=== PATIENT | female | born 1970 | race African-American/Black ===

== ENCOUNTER 2020-06-19 10:03 | Day surgery (SDC) | payer OTHER ==
[~2020-06-19 10:03] MED LIST: FERRIC CARBOXYMALTOSE 750 MG in SODIUM CHLORIDE 250 ML IVPB ONE
[2020-06-19] MEDS ORDERED: CYANOCOBALAMIN (VITAMIN B-12) 1000 MCG/1 ML VIAL IM ONE (10:15)
[2020-06-19] MEDS ORDERED: FOLIC ACID 5 MG/1 ML SQ ONE (10:15)
[2020-06-19] MEDS ORDERED: EPOETIN ALFA-EPBX 40,000 UNIT/ML VIAL SQ ONE (10:15)
[2020-06-19] MEDS: ALBUMIN HUMAN 25% 12.5 GM/50 ML VIAL IVPB SCH ×3 (11:03→12:05)
[2020-06-19 11:33] LABS: BASO % 1.1 % (0-2.0); EOS % 1.6 % (0-4.5); HEMATOCRIT 17.6 % (32.4-45.2); MCHC 24.9 g/dl (32.0-36.0); MEAN PLT VOLUME 9.7 fl (7.5-11.1); MONO % 9.5 % (3.8-10.2); NEUT % 34.8 % (42.8-82.8); PLATELET COUNT 544 K/MM3 (134-434); RBC 3.38 M/mm3 (3.60-5.2); RDW 25.6 % (11.6-15.6); WHITE BLOOD COUNT 2.1 K/mm3 (4.0-10.0)
[2020-06-19 11:38] LABS: HEMOGLOBIN 4.4 GM/dL (10.7-15.3)
[2020-06-19 11:46] LABS: CALCIUM 9.4 mg/dL (8.5-10.1)
[2020-06-19 11:47] LABS: ALBUMIN 3.7 g/dl (3.4-5.0); BLOOD UREA NITROGEN 9.2 mg/dL (7-18)
[2020-06-19 11:50] LABS: CREATININE 0.7 mg/dL (0.55-1.3)
[2020-06-19 11:51] LABS: BILIRUBIN,TOTAL 0.6 mg/dL (0.2-1)
[2020-06-19 11:52] LABS: TOT PROT 7.8 g/dl (6.4-8.2)
[2020-06-19 12:56] VITALS: TEMP 98.7
[2020-06-19 12:56] LABS: ANISOCYTOSIS 3+; MACROCYTOSIS 0; PLATELET ESTIMATE INCREASED; TEAR DROP CELLS 2+
[2020-06-19 12:57] VITALS: BP 111/62; PULSE 87
== END 2020-06-19 13:00 | disposition home or self-care (01) ==
LOC: JONCNONCHE 10:03
PROVIDERS: ATTEND Internal Medicine Hematology & Oncology
PROC: 3E033GC Introduction of Other Therapeutic Substance into Peripheral Vein, Percutaneous Approach (ICD-10-PCS; principal; 2020-06-19)
PROC: 3E013GC Introduction of Other Therapeutic Substance into Subcutaneous Tissue, Percutaneous Approach (ICD-10-PCS; 2020-06-19)
DX: D64.9 Anemia, unspecified (principal)
CPT/HCPCS: 36415; 80053; 84703; 85025; 96365; 96366; 96372; J1439; P9047; Q5106

== ENCOUNTER 2020-06-26 05:59 | Day surgery (SDC) | payer OTHER ==
[2020-06-26] MEDS ORDERED: FERRIC CARBOXYMALTOSE 750 MG in SODIUM CHLORIDE 250 ML IVPB ONE (10:00)
[2020-06-26 13:01] LABS: MONO % 7.4 % (3.8-10.2); WHITE BLOOD COUNT 2.1 K/mm3 (4.0-10.0)
[2020-06-26 13:03] LABS: BASO % 0.4 % (0-2.0); EOS % 2.1 % (0-4.5); HEMATOCRIT 20.6 % (32.4-45.2); LYMPH % 43.2 % (8-40); MCHC 25.8 g/dl (32.0-36.0); MEAN PLT VOLUME 9.2 fl (7.5-11.1); NEUT % 46.9 % (42.8-82.8); PLATELET COUNT 120 K/MM3 (134-434); RBC 3.17 M/mm3 (3.60-5.2); RDW 26.6 % (11.6-15.6)
[2020-06-26 13:05] LABS: MCH 16.8 pg (25.7-33.7)
[2020-06-26 13:11] LABS: HEMOGLOBIN 5.3 GM/dL (10.7-15.3)
[2020-06-26 13:44] LABS: POTASSIUM 3.8 mmol/L (3.5-5.1)
[2020-06-26 13:47] LABS: ALBUMIN 3.6 g/dl (3.4-5.0); BLOOD UREA NITROGEN 10.7 mg/dL (7-18); CALCIUM 8.2 mg/dL (8.5-10.1)
[2020-06-26 13:50] LABS: CREATININE 0.6 mg/dL (0.55-1.3); PHOSPHOROUS 3.8 mg/dL (2.5-4.9)
[2020-06-26 13:51] LABS: BILIRUBIN,TOTAL 0.8 mg/dL (0.2-1)
[2020-06-26 14:20] LABS: ANISOCYTOSIS 3+; MACROCYTOSIS 0; PLATELET ESTIMATE DECREASED
[2020-06-26 15:10] VITALS: TEMP 98.4
[2020-06-26 15:11] VITALS: BP 127/61; PULSE 67
== END 2020-06-26 13:45 | disposition home or self-care (01) ==
LOC: JONCNONCHE 05:59
PROVIDERS: ATTEND Internal Medicine Hematology & Oncology
PROC: 3E033GC Introduction of Other Therapeutic Substance into Peripheral Vein, Percutaneous Approach (ICD-10-PCS; principal; 2020-06-26)
DX: D50.9 Iron deficiency anemia, unspecified (principal)
CPT/HCPCS: 36415; 80053; 83615; 84100; 84439; 84443; 84703; 85025; 86038; 88300-TC; 96365; J1439

== ENCOUNTER 2020-06-29 13:06 | Emergency (ER) | payer OTHER ==
[2020-06-29 13:13] VITALS: BMI 29.2
[2020-06-29] MEDS ORDERED: ACETAMINOPHEN 1000 MG/100 ML VIAL (NON FORMULARY) IVPB ONE (13:43)
[2020-06-29] MEDS ORDERED: SODIUM CHLORIDE 1,000 ML IV STA (13:43)
[2020-06-29] MEDS ORDERED: ONDANSETRON 4 MG/2 ML VIAL IVPUSH ONE (13:44)
[2020-06-29] MEDS ORDERED: ACETAMINOPHEN INJECTION 100 ML IVPB ONE (13:50)
[2020-06-29 14:38] LABS: URINE APPEARANCE CLEAR; URINE BILIRUBIN NEGATIVE (NEGATIVE); URINE COLOR YELLOW; URINE GLUCOSE (UA) NEGATIVE (NEGATIVE); URINE KETONE TRACE (NEGATIVE); URINE LEUK ESTERASE NEGATIVE (NEGATIVE); URINE NITRITE NEGATIVE (NEGATIVE); URINE PROTEIN NEGATIVE (NEGATIVE)
[2020-06-29 14:40] LABS: HCG,QUALITATIVE URINE Negative
[2020-06-29 14:52] LABS: BASO % 1.2 % (0-2.0); EOS % 2.2 % (0-4.5); LYMPH % 31.7 % (8-40); MCHC 25.8 g/dl (32.0-36.0); MEAN CELL VOLUME 70.9 fl (80-96); MEAN PLT VOLUME 10.1 fl (7.5-11.1); MONO % 7.4 % (3.8-10.2); NEUT % 57.5 % (42.8-82.8); PLATELET COUNT 46 K/MM3 (134-434); RBC 3.52 M/mm3 (3.60-5.2); RDW 49.2 % (11.6-15.6); WHITE BLOOD COUNT 4.1 K/mm3 (4.0-10.0)
[2020-06-29 15:02] LABS: HEMOGLOBIN 6.5 GM/dL (10.7-15.3); MCH 18.3 pg (25.7-33.7)
[2020-06-29 15:07] LABS: POTASSIUM 3.8 mmol/L (3.5-5.1)
[2020-06-29 15:10] LABS: ALBUMIN 3.6 g/dl (3.4-5.0); BLOOD UREA NITROGEN 13.4 mg/dL (7-18); CALCIUM 8.6 mg/dL (8.5-10.1)
[2020-06-29 15:13] LABS: CREATININE 0.8 mg/dL (0.55-1.3)
[2020-06-29 15:15] LABS: BILIRUBIN,TOTAL 0.6 mg/dL (0.2-1); TOT PROT 7.1 g/dl (6.4-8.2)
[2020-06-29 16:06] LABS: ANISOCYTOSIS 3+; MACROCYTOSIS 2+; OVALOCYTE 2+; PLATELET ESTIMATE DECREASED
[2020-06-29] MEDS ORDERED: traMADol HCL 50 MG TABLET PO ONE (21:55)
[2020-06-29] MEDS ORDERED: traMADol HCL 50 MG TABLET ONE (22:13)
[2020-06-29 22:15] VITALS: BP 114/71; PULSE 54; TEMP 98.1
== END 2020-06-29 21:35 | disposition home or self-care (01) ==
LOC: JER 13:06
PROC: 3E0333Z Introduction of Anti-inflammatory into Peripheral Vein, Percutaneous Approach (ICD-10-PCS; principal; 2020-06-29)
PROC: 3E033GC Introduction of Other Therapeutic Substance into Peripheral Vein, Percutaneous Approach (ICD-10-PCS; 2020-06-29)
PROC: 3E0337Z Introduction of Electrolytic and Water Balance Substance into Peripheral Vein, Percutaneous Approach (ICD-10-PCS; 2020-06-29)
DX: R10.9 Unspecified abdominal pain (principal); D50.8 Other iron deficiency anemias
CPT/HCPCS: 36415; 71275-TC; 74174-TC; 74176-TC; 80053; 81003; 83690; 84703; 85025; 86900; 87086; 99285-25; J0131; Q9967

== ENCOUNTER 2020-07-03 07:16 | Day surgery (SDC) | payer OTHER ==
[2020-07-03] MEDS ORDERED: IRON SUCROSE INJECTION 300 MG in SODIUM CHLORIDE 250 ML IVPB ONE (10:00)
[2020-07-03 14:23] VITALS: BP 120/75; PULSE 81; TEMP 98.4
== END 2020-07-03 12:45 | disposition home or self-care (01) ==
LOC: JONCCHEMO 07:16
PROVIDERS: ATTEND Internal Medicine Hematology & Oncology
PROC: 3E033GC Introduction of Other Therapeutic Substance into Peripheral Vein, Percutaneous Approach (ICD-10-PCS; principal; 2020-07-03)
DX: D50.9 Iron deficiency anemia, unspecified (principal)
CPT/HCPCS: 96365; J1756

== ENCOUNTER 2020-07-08 07:07 | Day surgery (SDC) | payer OTHER ==
[2020-07-08] MEDS ORDERED: IRON SUCROSE INJECTION 300 MG in SODIUM CHLORIDE 250 ML IVPB ONE (10:00)
[2020-07-08 11:28] LABS: BASO % 1.2 % (0-2.0); EOS % 5.5 % (0-4.5); HEMOGLOBIN 9.9 GM/dL (10.7-15.3); LYMPH % 53.5 % (8-40); MCH 22.9 pg (25.7-33.7); MCHC 29.3 g/dl (32.0-36.0); MEAN CELL VOLUME 78.3 fl (80-96); MEAN PLT VOLUME 9.2 fl (7.5-11.1); MONO % 10.2 % (3.8-10.2); NEUT % 29.6 % (42.8-82.8); RBC 4.34 M/mm3 (3.60-5.2); RDW 46.6 % (11.6-15.6); WHITE BLOOD COUNT 2.4 K/mm3 (4.0-10.0)
[2020-07-08 11:39] LABS: ALBUMIN 3.8 g/dl (3.4-5.0); CALCIUM 8.5 mg/dL (8.5-10.1); MAGNESIUM 1.8 mg/dL (1.8-2.4)
[2020-07-08 11:40] LABS: PLATELET COUNT 175 K/MM3 (134-434)
[2020-07-08 11:41] LABS: BILIRUBIN,DIRECT 0.2 mg/dL (0.0-0.2); URIC ACID 3.3 mg/dL (2.6-7.2)
[2020-07-08 11:42] LABS: CREATININE 0.7 mg/dL (0.55-1.3)
[2020-07-08 11:43] LABS: BILIRUBIN,TOTAL 0.5 mg/dL (0.2-1)
[2020-07-08 11:47] LABS: TOT PROT 7.4 g/dl (6.4-8.2)
[2020-07-08 11:55] LABS: IRON SERUM 66 ug/dL (50-175)
[2020-07-08 11:56] LABS: TOTAL IRON BINDING CAPACITY 374 ug/dL (250-450)
[2020-07-08 12:49] LABS: PLATELET ESTIMATE NORMAL
[2020-07-08 16:56] VITALS: TEMP 98.2
[2020-07-08 16:57] VITALS: BP 114/78; PULSE 86
== END 2020-07-08 12:55 | disposition home or self-care (01) ==
LOC: JONCNONCHE 07:07 → JONCCHEMO 07:07 → JONCNONCHE 12:55
PROVIDERS: ATTEND Internal Medicine Hematology & Oncology
PROC: 3E033GC Introduction of Other Therapeutic Substance into Peripheral Vein, Percutaneous Approach (ICD-10-PCS; principal; 2020-07-08)
DX: D50.9 Iron deficiency anemia, unspecified (principal)
CPT/HCPCS: 36415; 80048; 80076; 82728; 83540; 83550; 83615; 83735; 84550; 85025; 86225; 86235; 96365; J1756

== ENCOUNTER 2020-07-17 05:40 | Day surgery (SDC) | payer OTHER ==
[2020-07-17] MEDS ORDERED: IRON SUCROSE INJECTION 300 MG in SODIUM CHLORIDE 250 ML IVPB ONE (10:00)
[2020-07-17 14:30] VITALS: BP 109/72; PULSE 80; TEMP 97.4
== END 2020-07-17 12:50 | disposition home or self-care (01) ==
LOC: JONCNONCHE 05:40
PROVIDERS: ATTEND Internal Medicine Hematology & Oncology
PROC: 3E013GC Introduction of Other Therapeutic Substance into Subcutaneous Tissue, Percutaneous Approach (ICD-10-PCS; principal; 2020-07-17)
DX: D50.9 Iron deficiency anemia, unspecified (principal)
CPT/HCPCS: 96365; J1756

== ENCOUNTER → 2021-11-22 | Emergency (ER) | payer OTHER ==
[~2021-11-22] MED LIST changes: -FERRIC CARBOXYMALTOSE 750 MG in SODIUM CHLORIDE 250 ML IVPB ONE; +PANTOPRAZOLE SODIUM 40 MG VIAL ONE
[2021-11-22 14:04] VITALS: BP 115/48; PULSE 103; TEMP 98.6; BMI 29.7
== END | disposition left against medical advice (07) ==
LOC: JERFT 14:00 → JER 14:00
DX: R05.9 Cough, unspecified (principal); H92.02 Otalgia, left ear
CPT/HCPCS: 99282-25

== ENCOUNTER 2022-11-17 22:33 | Inpatient (IN) | payer OTHER ==
[2022-11-17 22:57] VITALS: BMI 29.1
[2022-11-18] MEDS ORDERED: KETOROLAC TROMETHAMINE 30 MG/1 ML VIAL IM ONE (00:43)
[2022-11-18] MEDS ORDERED: KETOROLAC TROMETHAMINE 30 MG/1 ML VIAL IVPUSH ONE (01:19)
[2022-11-18] MEDS ORDERED: KETOROLAC TROMETHAMINE 30 MG/1 ML VIAL ONE (01:27)
[2022-11-18 01:46] LABS: BASO % 0.4 % (0-2.0); EOS % 0.2 % (0-4.5); HEMATOCRIT 15.6 % (32.4-45.2); LYMPH % 20.1 % (8-40); MCHC 27.5 g/dl (32.0-36.0); MEAN CELL VOLUME 48.6 fl (80-96); MEAN PLT VOLUME 8.4 fl (7.5-11.1); NEUT % 69.3 % (42.8-82.8); PLATELET COUNT 241 10^3/uL (134-434); RDW 23.8 % (11.6-15.6); WHITE BLOOD COUNT 6.9 K/mm3 (4.0-10.0)
[2022-11-18 02:11] LABS: ALBUMIN 3.2 g/dl (3.4-5.0); BLOOD UREA NITROGEN 8.6 mg/dL (7-18)
[2022-11-18 02:13] LABS: MCH 13.4 pg (25.7-33.7)
[2022-11-18 02:14] LABS: CREATININE 0.7 mg/dL (0.55-1.3); HEMOGLOBIN 4.3 GM/dL (10.7-15.3)
[2022-11-18 02:15] LABS: BILIRUBIN,TOTAL 0.5 mg/dL (0.2-1); TOT PROT 7.4 g/dl (6.4-8.2)
[2022-11-18] MEDS ORDERED: DOCUSATE SODIUM 100 MG CAPSULE (FP) PO PRN (03:59)
[2022-11-18] MEDS ORDERED: ACETAMINOPHEN 1000 MG/100 ML BAG IVPB PRN (04:03)
[2022-11-18 08:39] LABS: BASO % 0.3 % (0-2.0); EOS % 0.2 % (0-4.5); HEMATOCRIT 18.6 % (32.4-45.2); LYMPH % 14.1 % (8-40); MCHC 28.9 g/dl (32.0-36.0); MEAN CELL VOLUME 53.7 fl (80-96); MEAN PLT VOLUME 9.3 fl (7.5-11.1); MONO % 13.8 % (3.8-10.2); NEUT % 71.6 % (42.8-82.8); PLATELET COUNT 271 10^3/uL (134-434); RBC 3.45 M/mm3 (3.60-5.2); RDW 24.7 % (11.6-15.6); WHITE BLOOD COUNT 6.8 K/mm3 (4.0-10.0)
[2022-11-18 08:40] LABS: RETICULOCYTES 1.36 % (0.5-1.5)
[2022-11-18 08:41] LABS: MCH 15.5 pg (25.7-33.7)
[2022-11-18 08:42] LABS: HEMOGLOBIN 5.4 GM/dL (10.7-15.3)
[2022-11-18] MEDS ORDERED: ACETAMINOPHEN 325 MG TABLET (FP) ONE ×2 (08:43→14:00)
[2022-11-18 18:48] LABS: HEMATOCRIT 22.1 % (32.4-45.2); MEAN CELL VOLUME 57.4 fl (80-96); RBC 3.85 M/mm3 (3.60-5.2); RDW 37.1 % (11.6-15.6)
[2022-11-18 18:51] LABS: MCH 16.6 pg (25.7-33.7)
[2022-11-18 18:52] LABS: HEMOGLOBIN 6.4 GM/dL (10.7-15.3)
[2022-11-18 19:12] LABS: MEAN PLT VOLUME 8.7 fl (7.5-11.1); PLATELET COUNT 233 10^3/uL (134-434)
[2022-11-18] MEDS: ACETAMINOPHEN 325 MG TABLET (FP) PO PRN (20:43)
[2022-11-19] MEDS ORDERED: ACETAMINOPHEN 325 MG TABLET (FP) PO PRN (03:59)
[2022-11-19 08:56] LABS: HEMATOCRIT 23.2 % (32.4-45.2); MCHC 30.3 g/dl (32.0-36.0); MEAN CELL VOLUME 59.7 fl (80-96); MEAN PLT VOLUME 8.7 fl (7.5-11.1); RBC 3.89 M/mm3 (3.60-5.2); RDW 37.1 % (11.6-15.6); WHITE BLOOD COUNT 8.8 K/mm3 (4.0-10.0)
[2022-11-19 08:57] LABS: MCH 18.1 pg (25.7-33.7)
[2022-11-19 08:58] LABS: PLATELET COUNT 178 10^3/uL (134-434)
[2022-11-19 09:08] LABS: INR 1.41 (0.83-1.09); PROTHROMBIN TIME (PATIENT) 16.3 SEC (9.7-13.0)
[2022-11-19 09:10] LABS: ACTIVATED PTT 27.3 SECONDS (25.2-36.5)
[2022-11-19 09:28] LABS: BLOOD UREA NITROGEN 8.3 mg/dL (7-18)
[2022-11-19 09:30] LABS: CALCIUM 8.6 mg/dL (8.5-10.1)
[2022-11-19 09:31] LABS: MAGNESIUM 1.7 mg/dL (1.8-2.4)
[2022-11-19 09:32] LABS: CREATININE 0.7 mg/dL (0.55-1.3); PHOSPHOROUS 3.1 mg/dL (2.5-4.9)
[2022-11-19] MEDS ORDERED: MAGNESIUM SULF 50% (8.12 MEQ/2 ML-1 GM VIAL) IVPB ONE ×2 (11:20→15:45)
[2022-11-19] MEDS ORDERED: IRON SUCROSE INJECTION 200 MG in SODIUM CHLORIDE 90 ML IVPB ONE (11:21)
[2022-11-19] MEDS: ACETAMINOPHEN 325 MG TABLET (FP) PO PRN (19:23)
[2022-11-20] MEDS: ACETAMINOPHEN 325 MG TABLET (FP) PO PRN ×3 (06:53→23:22)
[2022-11-20 10:18] LABS: BASO % 0.6 % (0-2.0); EOS % 0.3 % (0-4.5); HEMATOCRIT 29.5 % (32.4-45.2); HEMOGLOBIN 8.9 GM/dL (10.7-15.3); LYMPH % 13.1 % (8-40); MCHC 30.1 g/dl (32.0-36.0); MEAN CELL VOLUME 62.3 fl (80-96); MEAN PLT VOLUME 9.7 fl (7.5-11.1); MONO % 7.9 % (3.8-10.2); NEUT % 78.1 % (42.8-82.8); PLATELET COUNT 188 10^3/uL (134-434); RBC 4.73 M/mm3 (3.60-5.2); RDW 37.2 % (11.6-15.6); WHITE BLOOD COUNT 8.8 K/mm3 (4.0-10.0)
[2022-11-20 10:20] LABS: MCH 18.7 pg (25.7-33.7)
[2022-11-20 10:51] LABS: ALBUMIN 3.1 g/dl (3.4-5.0); BLOOD UREA NITROGEN 8.7 mg/dL (7-18); CALCIUM 9.3 mg/dL (8.5-10.1)
[2022-11-20 10:55] LABS: CREATININE 0.7 mg/dL (0.55-1.3)
[2022-11-20 10:56] LABS: BILIRUBIN,TOTAL 0.9 mg/dL (0.2-1); TOT PROT 7.8 g/dl (6.4-8.2)
[2022-11-20 15:28] LABS: MAGNESIUM 2.1 mg/dL (1.8-2.4)
[2022-11-21] MEDS: ACETAMINOPHEN 325 MG TABLET (FP) PO PRN (05:41)
[2022-11-21 11:04] VITALS: BP 115/59; PULSE 69; RESP 18; TEMP 97.8
== END 2022-11-21 14:52 | disposition home or self-care (01) | DRG 663 ==
LOC: JER 22:33 → JERBED 11-18 03:50 → J7W 11-18 14:17 → OBSVTOIN 11-20 07:48
PROVIDERS: ADMIT Internal Medicine; ATTEND Family Medicine
PROC: 30233N1 Transfusion of Nonautologous Red Blood Cells into Peripheral Vein, Percutaneous Approach (ICD-10-PCS; principal; 2022-11-18)
DX: D50.8 Other iron deficiency anemias (principal); D25.9 Leiomyoma of uterus, unspecified; H10.9 Unspecified conjunctivitis
CPT/HCPCS: 0241U-QW; 36415; 36430; 71045-TC-FY; 71260-TC; 73560-TC-LT-FY; 73560-TC-RT-FY; 74177-TC; 76856-TC; 80048; 80053; 82607; 82728; 82746; 83540; 83550; 83615; 83735; 84100; 84703; 85025; 85027; 85045; 85610; 85730; 86850; 86900; 86901; 86922; 87207; 93005; 93010; 99285-25; G0378; J1756; P9058

== ENCOUNTER 2022-12-26 12:53 | Emergency (ER) | payer OTHER ==
[2022-12-26 12:59] VITALS: BP 120/85; PULSE 76; RESP 18; TEMP 98.7; BMI 29.1
[2022-12-26] MEDS ORDERED: ERYTHROMYCIN 0.5% OPHTHALMIC OINTMENT 3.5 GM TUBE OU STA (13:26)
[2022-12-26] MEDS ORDERED: ERYTHROMYCIN 0.5% OPHTHALMIC OINTMENT 3.5 GM TUBE ONE (13:27)
== END 2022-12-26 13:38 | disposition home or self-care (01) ==
LOC: JERFT 12:53
DX: H10.33 Unspecified acute conjunctivitis, bilateral (principal)
CPT/HCPCS: 99282-25